=== PATIENT | female | born 1995 | race Hispanic/Latino ===

== ENCOUNTER 2023-09-17 11:35 | Day surgery (SDC) | payer OTHER ==
[2023-09-17 12:43] VITALS: BMI 34.7
[2023-09-17] MEDS ORDERED: hydrALAZINE 20 MG/ML VIAL SLOW IVP PRN (12:58)
== END 2023-09-17 14:49 | disposition home or self-care (01) ==
LOC: CSHLD/OP 11:35
PROVIDERS: ATTEND Family Medicine
DX: O47.1 False labor at or after 37 completed weeks of gestation (principal); Z79.899 Other long term (current) drug therapy; Z3A.37 37 weeks gestation of pregnancy

== ENCOUNTER 2023-09-24 10:02 | Inpatient (IN) | payer MEDICAID, SELFPAY ==
[2023-09-24] MEDS ORDERED: HYDROcodone/Acetaminophen 5/325 mg Tablet PO PRN ×2 (10:04→19:20)
[2023-09-24] MEDS ORDERED: Acetaminophen 500 MG TAB PO PRN (10:04)
[2023-09-24] MEDS ORDERED: Carboprost 250 MCG/ML AMP IM PRN (10:04)
[2023-09-24] MEDS ORDERED: Misoprostol 200 MCG TAB PR PRN (10:04)
[2023-09-24] MEDS ORDERED: Ondansetron PF 4 MG/2 ML Vial IVP PRN ×3 (10:04→19:20)
[2023-09-24] MEDS ORDERED: fentaNYL 50 mcg/mL 1 mL Vial SLOW IVP PRN (10:04)
[2023-09-24] MEDS ORDERED: Lidocaine 1% (PF) 30 ML VIAL SC PRN (10:04)
[2023-09-24] MEDS ORDERED: Methylergonovine 0.2 MG/ML VIAL IM PRN (10:04)
[2023-09-24] MEDS ORDERED: Diphenoxylate HCl/Atropine Tablet PO PRN (10:04)
[2023-09-24] MEDS ORDERED: Promethazine HCl 25 MG/ML VIAL IM PRN ×3 (10:04→19:20)
[2023-09-24] MEDS ORDERED: hydrALAZINE 20 MG/ML VIAL SLOW IVP PRN ×2 (10:04→19:20)
[2023-09-24] MEDS ORDERED: Ibuprofen 800 MG TAB PO PRN (10:04)
[2023-09-24] MEDS ORDERED: Tranexamic Acid 1,000 MG/10 ML VIAL IVP PRN (10:04)
[2023-09-24] MEDS ORDERED: Oxytocin 30 units/NS 500 ML 500 ML IV SCH ×3 (10:15→19:20)
[2023-09-24] MEDS: Lactated Ringer's 1,000 ML IV SCH (10:30)
[2023-09-24] MEDS: Penicillin G Potassium 5 MILL.UNITS in Sodium Chloride 0.9% 100 ML IVPB SCH (10:31)
[2023-09-24 10:51] LABS: Hematocrit 42.4 % (34.9-44.5); Hemoglobin 14.6 g/dL (12.0-15.5); Mean Corpuscular HGB CONC 34.4 g/dL (32.0-36.0); Mean Corpuscular Volume 87.2 fl (81.6-98.3); Mean Platelet Volume 12.6 fl (7.4-10.4); Platelet Count 203 10x3/uL (150-450); RBC Distribution Width 12.7 % (11.5-14.5); Red Blood Cell (RBC) Count 4.86 10x6/uL (3.90-5.03); White Blood Cell (WBC) Count 12.3 10x3/uL (3.5-10.5)
[2023-09-24 10:52] VITALS: BMI 35.4
[2023-09-24 11:43] LABS: Syphilis Antibody Nonreactive (Nonreactive)
[2023-09-24 11:44] LABS: HBSAg Index 0.23 S/CO (0-0.99); Hep B Surf Ag - L&D Non-Reactive S/CO (NonReactive)
[2023-09-24] MEDS: fentaNYL/Ropivacaine Epidural 100 ML ONE (13:00)
[2023-09-24] MEDS ORDERED: ePHEDrine Sulfate 50 MG/10 ML VIAL SLOW IVP PRN (13:11)
[2023-09-24] MEDS ORDERED: Moisturizing Cream (Eucerin) 113 GM JAR TOP PRN (13:11)
[2023-09-24] MEDS ORDERED: Lactated Ringer's 500 ML IV PRN (13:11)
[2023-09-24] MEDS ORDERED: diphenhydrAMINE 50 MG/ML VIAL IVP PRN (13:11)
[2023-09-24] MEDS ORDERED: Naloxone HCl 0.4 mg/ml Vial IVP PRN ×2 (13:11)
[2023-09-24] MEDS ORDERED: Acetaminophen 325 MG TAB PO PRN (13:11)
[2023-09-24] MEDS ORDERED: fentaNYL 2 mcg/Ropivacaine 0.2% Epidural 100 ML CADD EPIDURAL SCH (13:15)
[2023-09-24] MEDS ORDERED: Communication Order-Pharmacy FS SCH (13:15)
[2023-09-24] MEDS: Penicillin G 2.5 MILL.units 2.5 MILL.UNITS in Premix 1 BAG IVPB SCH (14:21)
[2023-09-24] MEDS: Oxytocin 30 units/NS 500 ML 500 ML IV SCH (14:22)
[2023-09-24] MEDS ORDERED: diphenhydrAMINE 25 MG CAP PO PRN (19:20)
[2023-09-24] MEDS ORDERED: Bisacodyl 10 MG SUPP PR PRN (19:20)
[2023-09-24] MEDS ORDERED: Milk Of Magnesia 30 ML UDCUP PO PRN (19:20)
[2023-09-24] MEDS ORDERED: Lanolin Ointment 7 GM TUBE TOP PRN (19:20)
[2023-09-24] MEDS: Boostrix 0.5 ML (Tdap) VIAL (>/=7 yrs of age) IM ONE (19:50)
[2023-09-24] MEDS: Ferrous Sulfate 325 MG TAB PO SCH (19:50)
[2023-09-24] MEDS: Ibuprofen 800 MG TAB PO SCH (21:43)
[2023-09-24] MEDS: Docusate 100 MG CAP PO SCH (21:43)
[2023-09-25] MEDS ORDERED: Bupivacaine 0.25% HCL 30 ML VIAL ONE (08:00)
[2023-09-25] MEDS: Prenatal Vitamin 1 TAB PO SCH (11:11)
[2023-09-25] MEDS: Ferrous Sulfate 325 MG TAB PO SCH (11:11)
[2023-09-25] MEDS: HYDROcodone/Acetaminophen 5/325 mg Tablet PO PRN (11:19)
[2023-09-25 11:51] VITALS: BP 112/73; TEMP 97.8
== END 2023-09-25 18:45 | disposition home or self-care (01) | DRG 807 ==
LOC: CSHLD 10:02 → UNDODISIN 10:58 → CSHPP 18:31
PROVIDERS: ADMIT Family Medicine; ATTEND Family Medicine
PROC: 10E0XZZ Delivery of Products of Conception, External Approach (ICD-10-PCS; principal; 2023-09-24)
PROC: 10907ZC Drainage of Amniotic Fluid, Therapeutic from Products of Conception, Via Natural or Artificial Opening (ICD-10-PCS; 2023-09-24)
DX: O99.824 Streptococcus B carrier state complicating childbirth (principal); Z37.0 Single live birth; Z3A.38 38 weeks gestation of pregnancy
CPT/HCPCS: 36415; 51702; 85027; 86780; 86850; 86900; 86901; 87340; J0665; J2540; J2590; J3490; J7120